=== PATIENT | male | born 1965 | race Caucasian/White ===

== ENCOUNTER 2017-11-09 11:57 | Day surgery (SDC) | payer MEDICARE, OTHER ==
[~2017-11-09] VITALS: Ht 170.2 cm; Wt 75.4 kg
[~2017-11-09 11:57] MED LIST changes: -IRON 27 MG PO; -PERCOCET 325 MG1 TA2 PO
[2017-11-09 14:09] LABS: EOS # 0.1 (0.0-0.7); EOS % 2.4 % (0-4.0); GRAN # 2.7 (1.4-6.5); GRAN % 56.8 % (42.2-75.2); HEMATOCRIT 38.1 % (42.0-52.0); HEMOGLOBIN 12.7 g/dl (13.5-18.0); LYMPH # 1.4 (1.2-3.4); LYMPH % 30.9 % (20.0-51.0); MEAN CELL VOLUME 97 fl (80.0-100.0); MEAN CORPUSCULAR HEMOGLOBIN 32 pg (27.0-31.0); MEAN CORPUSCULAR HGB CONC 33 g/dl (33.0-37.0); MEAN PLATELET VOLUME 9.5 fl (7.4-10.4); MONO # 0.5 (0.1-0.6); MONO % 9.7 % (1.7-9.3); PLATELET COUNT 182 K/mm3 (130-400); RED BLOOD COUNT 3.92 M/mm3 (4.20-5.60); REDCELL DISTRIBUTION WIDTH-CV 12.8 % (11.5-14.5)
[2017-11-09 14:11] VITALS: BP 117/77; PULSE 56; TEMP 97.8
[2017-11-09] MEDS ORDERED: PERCOCET 325 MG1 TA2 PO (14:33)
[2017-11-09] MEDS ORDERED: IRON 27 MG PO (14:41)
[2017-11-09 19:30] VITALS: BP 109/68; PULSE 49; TEMP 97.6
[2017-11-09 19:45] VITALS: BP 106/66; PULSE 49
[2017-11-09 20:19] VITALS: BP 108/72; PULSE 60; TEMP 97.3
== END 2017-11-09 19:45 | disposition home or self-care (01) ==
LOC: SDCO 11:57 → SURG 18:50 → SDCO 19:45
PROVIDERS: Urology
DX: N13.2 Hydronephrosis with renal and ureteral calculous obstruction (principal); Z87.442 Personal history of urinary calculi; Z96.651 Presence of right artificial knee joint; Z98.84 Bariatric surgery status; G47.9 Sleep disorder, unspecified; F41.9 Anxiety disorder, unspecified; K29.70 Gastritis, unspecified, without bleeding; K44.9 Diaphragmatic hernia without obstruction or gangrene; K21.9 Gastro-esophageal reflux disease without esophagitis; Z88.5 Allergy status to narcotic agent
CPT/HCPCS: OP; C1769; J0690; J2250; J2270; J2704; J2765; J3010; J7030; Q9967

== ENCOUNTER → 2017-11-09 | Outpatient (CLI) | payer MEDICARE, OTHER ==
[~2017-11-09] MED LIST: FISH OIL1000 MG PO; GLUCOSAMINE & C1 CA1 PO; IRON 27 MG PO; MULTIPLE VITAMI1 CAP PO; PERCOCET 325 MG1 TA2 PO; PRIL40
== END ==
LOC: COL.RAD 10:11
DX: N20.0 Calculus of kidney (principal); N28.9 Disorder of kidney and ureter, unspecified
CPT/HCPCS: Q9967